=== PATIENT | female | born 1925 | race Caucasian/White ===

== ENCOUNTER 2016-08-18 10:48 | Emergency (ER) | payer MEDICARE, OTHER ==
[~2016-08-18 10:48] MED LIST: BISACODYL10 MG RC; CONSTULOSE10 GM/15 M PO; DEXILANT60 MG PO; DIOVAN320 MG PO; ELIQUIS5 MG PO; LUMIGAN5 ML OP; NAMENDA5 MG PO; NIFEREX 150 MG150 MG PO; ONDANSETRON HCL4 MG PO; OSCAL 500 + D TA1 EA PO; PROLIA INJ60 MG/1 ML SC; REMERON15 MG PO; SINEMET 25-1001 EACH PO; SYNTHROID75 MCG PO; TYLENOL 500 MG500 MG PO; VITAMIN B-1000 MCG/M INJ; VITAMIN D22000 UNIT PO; ZANTAC300 MG PO; ZOSYN 2.252.25 GM/50 IV; ZOSYN 3.373.375 GM/5 IV
[2016-08-18 12:11] LABS: HEMOGLOBIN 12.6 gm/dl (12.3-15.3); RED BLOOD COUNT 4.04 M/UL (4.00-5.10); WHITE BLOOD COUNT 7.7 K/UL (4.5-11.0)
[2016-08-18 12:32] LABS: BUN/CREATININE RATIO 17 (0-10)
== END 2016-08-18 18:45 | disposition home or self-care (01) ==
LOC: ER1 10:48
PROVIDERS: Family Medicine
DX: R41.0 Disorientation, unspecified (principal); R53.81 Other malaise; G47.00 Insomnia, unspecified; I10 Essential (primary) hypertension; G20 Parkinson's disease; F02.80 Dementia in other diseases classified elsewhere, unspecified severity, without behavioral disturbance, psychotic disturbance, mood disturbance, and anxiety; Z86.711 Personal history of pulmonary embolism; Z88.0 Allergy status to penicillin; Z88.1 Allergy status to other antibiotic agents; Z79.01 Long term (current) use of anticoagulants; Z79.899 Other long term (current) drug therapy
CPT/HCPCS: 36415; 70450; 71010; 80053; 81001; 82550; 82553; 83874; 84443; 84484; 85025; 93005; 99285